=== PATIENT | male | born 1980 | race Caucasian/White ===

== ENCOUNTER 2019-12-02 19:12 | Inpatient (IN) | payer MEDICAID, OTHER ==
[~2019-12-02] VITALS: Ht 177.8 cm; Wt 160.0 kg
[2019-12-02] MEDS ORDERED: HYDROmorphone HCL 2 MG/ML VL IV ONE (20:45)
[2019-12-02] MEDS ORDERED: ONDANSETRON HCL 4 MG/2 ML VIAL IV ONE (20:45)
[2019-12-02] MEDS ORDERED: ENALAPRILAT 1.25 MG/ML-1ML VIAL IV ONE (20:45)
[2019-12-02] MEDS ORDERED: hydrALAZINE HCL 20 MG/ML VL IV ONE (20:45)
[2019-12-02 21:23] LABS: Basophils # (auto) 0.1 10 ^3/uL (0-0.2); Basophils % (auto) 0.5 % (0.0-2.0); Eosinophils # (auto) 0.1 10 ^3/uL (0-0.8); Eosinophils % (auto) 1.2 % (0.0-7.0); Hematocrit 50.2 % (41.0-53.0); Lymphocytes % (auto) 15.6 % (10.0-50.0); Mean Corpuscular Hemoglobin 29.7 pg (28.0-32.0); Mean Corpuscular Hgb Conc. 31.9 g/dL (32.0-36.0); Mean Corpuscular Volume 92.9 fL (80.0-100.0); Monocytes % (auto) 7.8 % (0.0-12.0); Neutrophils # (auto) 9.5 10 ^3/uL (1.6-8.6); Neutrophils % (auto) 74.9 % (37.0-80.0); Nucleated Red Blood Cells % 0.2 %; Platelet Count (auto) 229 10^3/uL (140-450); Red Blood Cells 5.41 10^6/uL (4.5-5.90); Red Cell Distribution Width 15.8 % (11.8-14.3); White Blood Cell 12.6 10^3/uL (4.4-10.8)
[2019-12-02 21:38] LABS: INR 1.05 (0.9-1.15); Partial Thromboplastin Time 26.6 sec (23.0-31.2)
[2019-12-02 21:45] VITALS: BP 160/100
[2019-12-02 21:46] LABS: Albumin 3.5 g/dL (3.4-5.0); Calcium 8.4 mg/dL (8.5-10.1); Magnesium 2.4 mg/dL (1.6-2.6); Potassium 3.8 mmol/L (3.5-5.1)
[2019-12-02 21:52] LABS: BUN/Creatinine Ratio 14.1; Bilirubin, Total 0.4 mg/dL (0.2-1.0); Total Protein 7.3 g/dL (6.4-8.2)
[2019-12-02] MEDS ORDERED: PIPERACILLIN-TAZO 4.5GM 100 ML IV ONE (22:00)
[2019-12-02] MEDS ORDERED: ENOXAPARIN SOD 100 MG/1 ML SYRINGE SC ONE (22:15)
[2019-12-02] MEDS ORDERED: MORPHINE SULF INJ 2 MG/ML SYRINGE 1ML IV PRN (23:15)
[2019-12-02] MEDS ORDERED: NITROGLYCERIN 0.4 MG SL TAB SL PRN ×2 (23:15)
[2019-12-02] MEDS ORDERED: ZOLPIDEM TARTRATE 5 MG TAB PO PRN (23:15)
[2019-12-02] MEDS ORDERED: ONDANSETRON HCL 4 MG/2 ML VIAL IV PRN (23:15)
[2019-12-02] MEDS ORDERED: LORazepam 0.5 MG TAB PO PRN (23:15)
[2019-12-02] MEDS ORDERED: MORPHINE SULFATE 4 MG/ML SYR/VIAL IV PRN (23:15)
[2019-12-02] MEDS ORDERED: DEXTROSE (50%) 50ML SYRG IV PRN (23:15)
[2019-12-03] VITALS (65 sets, daily range): BP systolic 83–155; BP diastolic 44–91
[2019-12-03] MEDS: FUROSEMIDE 40 MG/4 ML VIAL IV SCH ×3 (00:04→22:34)
[2019-12-03] MEDS: ACCU-CHEK COMFORT CURVE STRIP VI SCH ×6 (00:23→20:05)
[2019-12-03] MEDS: InsuLIN REG 1unit/0.01ml Soln (100units/ml) SC SCH ×6 (00:23→20:00)
[2019-12-03 04:07] LABS: Basophils # (auto) 0.1 10 ^3/uL (0-0.2); Basophils % (auto) 0.7 % (0.0-2.0); Eosinophils # (auto) 0 10 ^3/uL (0-0.8); Eosinophils % (auto) 0.4 % (0.0-7.0); Hematocrit 51.1 % (41.0-53.0); Hemoglobin 16.2 g/dL (13.5-17.5); Lymphocytes # (auto) 1.2 10 ^3/uL (0.4-5.4); Lymphocytes % (auto) 9.5 % (10.0-50.0); Mean Corpuscular Hemoglobin 29.4 pg (28.0-32.0); Mean Corpuscular Hgb Conc. 31.8 g/dL (32.0-36.0); Mean Corpuscular Volume 92.5 fL (80.0-100.0); Monocytes # (auto) 0.8 10 ^3/uL (0-1.3); Monocytes % (auto) 6.5 % (0.0-12.0); Neutrophils # (auto) 10.6 10 ^3/uL (1.6-8.6); Neutrophils % (auto) 82.9 % (37.0-80.0); Nucleated Red Blood Cells % 0.1 %; Platelet Count (auto) 312 10^3/uL (140-450); Red Blood Cells 5.52 10^6/uL (4.5-5.90); Red Cell Distribution Width 16.4 % (11.8-14.3); White Blood Cell 12.8 10^3/uL (4.4-10.8)
[2019-12-03] MEDS: AZITHROMYCIN 500MG/ 250ML 250 ML IV SCH ×2 (06:42→11:00)
[2019-12-03 07:56] LABS: Potassium 3.8 mmol/L (3.5-5.1)
[2019-12-03 08:11] LABS: BUN/Creatinine Ratio 13.6; Magnesium 2.3 mg/dL (1.6-2.6)
[2019-12-03] MEDS: DOCUSATE SOD 100 MG CAP PO SCH (10:00)
[2019-12-03] MEDS: METOPROLOL TARTRATE 50 MG TAB PO SCH ×2 (10:00→22:00)
[2019-12-03] MEDS: CLOPIDOGREL BISULFATE 75 MG TAB PO SCH (10:00)
[2019-12-03] MEDS: ASPirin 81 mg TAB PO SCH (10:00)
[2019-12-03] MEDS: ENOXAPARIN SOD 100 MG/1 ML SYRINGE SC SCH ×2 (11:00→22:35)
[2019-12-03] MEDS: DexAMETHasone SOD PHOS 10MG/1ML VIAL INJ IV SCH (11:00)
[2019-12-03] MEDS: cefTRIAXone 1GM/50ML D5W 50 ML IV SCH (11:00)
[2019-12-03] MEDS ORDERED: ETOMIDATE (2MG/ML) 20ML VIAL IV ONE (11:38)
[2019-12-03] MEDS ORDERED: SUCCINYLCHOLINE CHLORIDE 20 MG/ML 10ML VIAL IV ONE (11:39)
[2019-12-03] MEDS ORDERED: ROCURONIUM 10MG/ML 10ML VIAL IV ONE (11:39)
[2019-12-03] MEDS: PROPOFOL 100 ML IV SCH ×3 (12:00→22:00)
[2019-12-03] MEDS ORDERED: MIDAZOLAM DRIP 50 mg/50mL 50 ML IV ONE (12:07)
[2019-12-03] MEDS ORDERED: PROPOFOL 100 ML IV ONE ×2 (12:23→14:35)
[2019-12-03] MEDS: MIDAZOLAM DRIP 50 mg/50mL 50 ML IV SCH ×2 (12:30→22:00)
[2019-12-03] MEDS ORDERED: NOREPINEPHRINE 8 MG/250ML KIT 250 ML IV SCH (13:05)
[2019-12-03] MEDS: NOREPINEPHRINE 8 MG/250ML KIT 250 ML IV SCH (13:15)
[2019-12-03] MEDS: ATORVASTATIN 20 MG TAB PO SCH (17:16)
[2019-12-04] VITALS (100 sets, daily range): BP systolic 100–142; BP diastolic 58–97
[2019-12-04] MEDS: PROPOFOL 100 ML IV SCH ×4 (01:53→10:00)
[2019-12-04 03:59] LABS: Basophils # (auto) 0 10 ^3/uL (0-0.2); Basophils % (auto) 0.1 % (0.0-2.0); Eosinophils # (auto) 0 10 ^3/uL (0-0.8); Eosinophils % (auto) 0.1 % (0.0-7.0); Hematocrit 47.5 % (41.0-53.0); Hemoglobin 15.5 g/dL (13.5-17.5); Lymphocytes # (auto) 1.6 10 ^3/uL (0.4-5.4); Lymphocytes % (auto) 11.7 % (10.0-50.0); Mean Corpuscular Hemoglobin 30.1 pg (28.0-32.0); Mean Corpuscular Hgb Conc. 32.6 g/dL (32.0-36.0); Mean Corpuscular Volume 92.4 fL (80.0-100.0); Monocytes % (auto) 7.3 % (0.0-12.0); Neutrophils # (auto) 11.2 10 ^3/uL (1.6-8.6); Neutrophils % (auto) 80.8 % (37.0-80.0); Nucleated Red Blood Cells % 0.2 %; Platelet Count (auto) 225 10^3/uL (140-450); Red Blood Cells 5.14 10^6/uL (4.5-5.90); Red Cell Distribution Width 15.6 % (11.8-14.3); White Blood Cell 13.9 10^3/uL (4.4-10.8)
[2019-12-04] MEDS: InsuLIN REG 1unit/0.01ml Soln (100units/ml) SC SCH ×6 (04:00→20:00)
[2019-12-04] MEDS: ACCU-CHEK COMFORT CURVE STRIP VI SCH ×6 (04:11→20:00)
[2019-12-04 04:12] LABS: Calcium 8.3 mg/dL (8.5-10.1); Potassium 3.9 mmol/L (3.5-5.1)
[2019-12-04 04:15] LABS: BUN/Creatinine Ratio 15.4
[2019-12-04] MEDS: MIDAZOLAM DRIP 50 mg/50mL 50 ML IV SCH (07:03)
[2019-12-04] MEDS: METOPROLOL TARTRATE 50 MG TAB PO SCH (10:00)
[2019-12-04] MEDS: CLOPIDOGREL BISULFATE 75 MG TAB PO SCH (10:00)
[2019-12-04] MEDS: ASPirin 81 mg TAB PO SCH (10:00)
[2019-12-04] MEDS: DOCUSATE SOD 100 MG CAP PO SCH (10:00)
[2019-12-04] MEDS: DexAMETHasone SOD PHOS 10MG/1ML VIAL INJ IV SCH (10:42)
[2019-12-04] MEDS: FUROSEMIDE 40 MG/4 ML VIAL IV SCH ×2 (10:42→22:18)
[2019-12-04] MEDS: cefTRIAXone 1GM/50ML D5W 50 ML IV SCH (10:42)
[2019-12-04] MEDS: AZITHROMYCIN 500MG/ 250ML 250 ML IV SCH (10:43)
[2019-12-04] MEDS: ENOXAPARIN SOD 100 MG/1 ML SYRINGE SC SCH ×2 (10:44→22:19)
[2019-12-04] MEDS: NOREPINEPHRINE 8 MG/250ML KIT 250 ML IV SCH (13:15)
[2019-12-04] MEDS: CARVEDILOL 3.125 MG TAB PO SCH (18:30)
[2019-12-04] MEDS: ATORVASTATIN 20 MG TAB PO SCH (18:31)
[2019-12-04] MEDS: SACUBITRIL-VALSARTAN 24mg/26mg TAB PO SCH (22:18)
[2019-12-05] VITALS (94 sets, daily range): BP systolic 94–151; BP diastolic 48–112
[2019-12-05] MEDS: PROPOFOL 100 ML IV SCH ×6 (00:52→21:48)
[2019-12-05 03:21] LABS: Basophils # (auto) 0.1 10 ^3/uL (0-0.2); Basophils % (auto) 0.4 % (0.0-2.0); Eosinophils # (auto) 0 10 ^3/uL (0-0.8); Eosinophils % (auto) 0.1 % (0.0-7.0); Hematocrit 49.8 % (41.0-53.0); Lymphocytes # (auto) 1.5 10 ^3/uL (0.4-5.4); Mean Corpuscular Hemoglobin 29.6 pg (28.0-32.0); Mean Corpuscular Hgb Conc. 32.2 g/dL (32.0-36.0); Mean Corpuscular Volume 92.2 fL (80.0-100.0); Monocytes # (auto) 1.2 10 ^3/uL (0-1.3); Monocytes % (auto) 8.6 % (0.0-12.0); Neutrophils # (auto) 11.2 10 ^3/uL (1.6-8.6); Neutrophils % (auto) 79.9 % (37.0-80.0); Nucleated Red Blood Cells % 0.4 %; Platelet Count (auto) 215 10^3/uL (140-450); Red Cell Distribution Width 15.3 % (11.8-14.3)
[2019-12-05] MEDS: InsuLIN REG 1unit/0.01ml Soln (100units/ml) SC SCH ×8 (03:37→23:21)
[2019-12-05] MEDS: ACCU-CHEK COMFORT CURVE STRIP VI SCH ×7 (03:37→23:22)
[2019-12-05 03:38] LABS: Calcium 8.6 mg/dL (8.5-10.1); Magnesium 2.3 mg/dL (1.6-2.6); Potassium 3.8 mmol/L (3.5-5.1)
[2019-12-05 03:42] LABS: BUN/Creatinine Ratio 20.6; Bilirubin, Direct 0.4 mg/dL (0-0.2); Bilirubin, Total 0.8 mg/dL (0.2-1.0); Total Protein 6.5 g/dL (6.4-8.2)
[2019-12-05 03:51] LABS: INR 1.08 (0.9-1.15); Partial Thromboplastin Time 28.2 sec (23.0-31.2)
[2019-12-05] MEDS: MIDAZOLAM DRIP 50 mg/50mL 50 ML IV SCH ×3 (09:29→23:35)
[2019-12-05] MEDS: CLOPIDOGREL BISULFATE 75 MG TAB PO SCH ×2 (10:00→10:05)
[2019-12-05] MEDS: DOCUSATE SOD 100 MG CAP PO SCH (10:00)
[2019-12-05] MEDS: DexAMETHasone SOD PHOS 10MG/1ML VIAL INJ IV SCH (10:03)
[2019-12-05] MEDS: CARVEDILOL 3.125 MG TAB PO SCH ×2 (10:03→17:34)
[2019-12-05] MEDS: SACUBITRIL-VALSARTAN 24mg/26mg TAB PO SCH ×2 (10:04→21:27)
[2019-12-05] MEDS: cefTRIAXone 1GM/50ML D5W 50 ML IV SCH (10:04)
[2019-12-05] MEDS: FUROSEMIDE 40 MG/4 ML VIAL IV SCH ×2 (10:04→21:26)
[2019-12-05] MEDS: ASPirin 81 mg TAB PO SCH (10:04)
[2019-12-05] MEDS: ENOXAPARIN SOD 100 MG/1 ML SYRINGE SC SCH ×2 (10:05→21:27)
[2019-12-05] MEDS: AZITHROMYCIN 500MG/ 250ML 250 ML IV SCH (11:33)
[2019-12-05] MEDS: NOREPINEPHRINE 8 MG/250ML KIT 250 ML IV SCH (13:15)
[2019-12-05] MEDS: ATORVASTATIN 20 MG TAB PO SCH (17:34)
[2019-12-06] VITALS (70 sets, daily range): BP systolic 100–154; BP diastolic 63–97
[2019-12-06] MEDS: PROPOFOL 100 ML IV SCH ×10 (00:32→23:41)
[2019-12-06] MEDS: InsuLIN REG 1unit/0.01ml Soln (100units/ml) SC SCH ×6 (03:38→23:43)
[2019-12-06] MEDS: ACCU-CHEK COMFORT CURVE STRIP VI SCH ×6 (03:39→23:43)
[2019-12-06 04:06] LABS: Basophils # (auto) 0 10 ^3/uL (0-0.2); Basophils % (auto) 0.3 % (0.0-2.0); Eosinophils # (auto) 0 10 ^3/uL (0-0.8); Hematocrit 48.4 % (41.0-53.0); Hemoglobin 15.7 g/dL (13.5-17.5); Lymphocytes # (auto) 1.5 10 ^3/uL (0.4-5.4); Lymphocytes % (auto) 13.3 % (10.0-50.0); Mean Corpuscular Hemoglobin 29.7 pg (28.0-32.0); Mean Corpuscular Hgb Conc. 32.4 g/dL (32.0-36.0); Mean Corpuscular Volume 91.6 fL (80.0-100.0); Monocytes # (auto) 0.9 10 ^3/uL (0-1.3); Monocytes % (auto) 8.1 % (0.0-12.0); Neutrophils # (auto) 8.6 10 ^3/uL (1.6-8.6); Neutrophils % (auto) 78.3 % (37.0-80.0); Platelet Count (auto) 194 10^3/uL (140-450); Red Blood Cells 5.29 10^6/uL (4.5-5.90); Red Cell Distribution Width 15.3 % (11.8-14.3)
[2019-12-06 04:27] LABS: Potassium 3.5 mmol/L (3.5-5.1)
[2019-12-06] MEDS: MIDAZOLAM DRIP 50 mg/50mL 50 ML IV SCH ×2 (04:27→20:15)
[2019-12-06 04:32] LABS: Albumin 2.7 g/dL (3.4-5.0); BUN/Creatinine Ratio 25.5; Bilirubin, Direct 0.4 mg/dL (0-0.2); Calcium 8.9 mg/dL (8.5-10.1); Magnesium 2.3 mg/dL (1.6-2.6)
[2019-12-06 04:34] LABS: INR 1.08 (0.9-1.15); Partial Thromboplastin Time 29.8 sec (23.0-31.2)
[2019-12-06 04:39] LABS: Bilirubin, Total 0.8 mg/dL (0.2-1.0); Total Protein 6.2 g/dL (6.4-8.2)
[2019-12-06] MEDS: IPRATROPIUM BROM 0.5 MG/2.5ML INH SOL NEB PRN ×2 (06:14→10:15)
[2019-12-06] MEDS: ALBUTEROL SULF 2.5 MG/0.5ML(0.5%) NEB SOLN NEB PRN ×2 (06:14→10:15)
[2019-12-06] MEDS: CARVEDILOL 3.125 MG TAB PO SCH (08:38)
[2019-12-06] MEDS: CLOPIDOGREL BISULFATE 75 MG TAB PO SCH (10:50)
[2019-12-06] MEDS: ENOXAPARIN SOD 100 MG/1 ML SYRINGE SC SCH ×2 (10:50→22:00)
[2019-12-06] MEDS: CARVEDILOL 12.5 MG TAB PO SCH ×2 (10:52→22:00)
[2019-12-06] MEDS: DOCUSATE SOD 100 MG CAP PO SCH (10:52)
[2019-12-06] MEDS: ASPirin 81 mg TAB PO SCH (10:52)
[2019-12-06] MEDS: AZITHROMYCIN 500MG/ 250ML 250 ML IV SCH (10:53)
[2019-12-06] MEDS: cefTRIAXone 1GM/50ML D5W 50 ML IV SCH (10:53)
[2019-12-06] MEDS: FUROSEMIDE 40 MG/4 ML VIAL IV SCH ×2 (10:54→22:00)
[2019-12-06] MEDS: SACUBITRIL-VALSARTAN 24mg/26mg TAB PO SCH ×2 (10:56→22:00)
[2019-12-06] MEDS: NOREPINEPHRINE 8 MG/250ML KIT 250 ML IV SCH (13:15)
[2019-12-06] MEDS: ATORVASTATIN 20 MG TAB PO SCH (17:49)
[2019-12-07] VITALS (96 sets, daily range): BP systolic 85–134; BP diastolic 40–91
[2019-12-07] MEDS: PROPOFOL 100 ML IV SCH ×5 (01:47→22:03)
[2019-12-07] MEDS: MIDAZOLAM DRIP 50 mg/50mL 50 ML IV SCH ×3 (01:48→22:56)
[2019-12-07 03:57] LABS: Basophils # (auto) 0.1 10 ^3/uL (0-0.2); Basophils % (auto) 0.8 % (0.0-2.0); Eosinophils # (auto) 0.1 10 ^3/uL (0-0.8); Eosinophils % (auto) 0.5 % (0.0-7.0); Hematocrit 47.6 % (41.0-53.0); Hemoglobin 15.4 g/dL (13.5-17.5); Lymphocytes # (auto) 2.2 10 ^3/uL (0.4-5.4); Lymphocytes % (auto) 20.2 % (10.0-50.0); Mean Corpuscular Hemoglobin 29.4 pg (28.0-32.0); Mean Corpuscular Hgb Conc. 32.3 g/dL (32.0-36.0); Mean Corpuscular Volume 91.1 fL (80.0-100.0); Neutrophils # (auto) 7.4 10 ^3/uL (1.6-8.6); Neutrophils % (auto) 69.5 % (37.0-80.0); Platelet Count (auto) 188 10^3/uL (140-450); Red Blood Cells 5.23 10^6/uL (4.5-5.90); Red Cell Distribution Width 15.6 % (11.8-14.3); White Blood Cell 10.7 10^3/uL (4.4-10.8)
[2019-12-07] MEDS: ACCU-CHEK COMFORT CURVE STRIP VI SCH ×6 (04:00→23:34)
[2019-12-07] MEDS: InsuLIN REG 1unit/0.01ml Soln (100units/ml) SC SCH ×6 (04:00→23:34)
[2019-12-07 04:14] LABS: Calcium 8.4 mg/dL (8.5-10.1)
[2019-12-07 04:20] LABS: Potassium 2.9 mmol/L (3.5-5.1)
[2019-12-07 04:58] LABS: BUN/Creatinine Ratio 29.1
[2019-12-07] MEDS: SACUBITRIL-VALSARTAN 24mg/26mg TAB PO SCH ×2 (09:52→20:01)
[2019-12-07] MEDS: ENOXAPARIN SOD 100 MG/1 ML SYRINGE SC SCH ×2 (10:11→20:02)
[2019-12-07] MEDS: DOCUSATE SOD 100 MG CAP PO SCH (10:12)
[2019-12-07] MEDS: CLOPIDOGREL BISULFATE 75 MG TAB PO SCH (10:12)
[2019-12-07] MEDS: FUROSEMIDE 40 MG/4 ML VIAL IV SCH ×2 (10:12→20:01)
[2019-12-07] MEDS: ASPirin 81 mg TAB PO SCH (10:12)
[2019-12-07] MEDS: cefTRIAXone 1GM/50ML D5W 50 ML IV SCH (10:13)
[2019-12-07] MEDS: AZITHROMYCIN 500MG/ 250ML 250 ML IV SCH (10:13)
[2019-12-07] MEDS: CARVEDILOL 12.5 MG TAB PO SCH (10:13)
[2019-12-07] MEDS ORDERED: POTASSIUM EFFERVESENT TAB 25 MEQ GT ONE (13:00)
[2019-12-07] MEDS: NOREPINEPHRINE 8 MG/250ML KIT 250 ML IV SCH (13:15)
[2019-12-07] MEDS: fentaNYL Drip 2500mCg/250mlNS 250 ML IV SCH (13:48)
[2019-12-07] MEDS: POTASSIUM CHL 20MEQ/100ML 100 ML IV SCH ×2 (13:51→16:50)
[2019-12-07] MEDS: ATORVASTATIN 20 MG TAB PO SCH (18:25)
[2019-12-07 19:42] LABS: BUN/Creatinine Ratio 30.6; Calcium 8.6 mg/dL (8.5-10.1); Potassium 3.5 mmol/L (3.5-5.1)
[2019-12-07] MEDS: CARVEDILOL 3.125 MG TAB PO SCH (20:00)
[2019-12-07] MEDS ORDERED: POTASSIUM EFFERVESENT TAB 25 MEQ GT SCH (22:00)
[2019-12-08] VITALS (100 sets, daily range): BP systolic 86–123; BP diastolic 37–75
[2019-12-08] MEDS: fentaNYL Drip 2500mCg/250mlNS 250 ML IV SCH ×3 (00:50→23:45)
[2019-12-08] MEDS: MIDAZOLAM DRIP 50 mg/50mL 50 ML IV SCH ×5 (03:57→21:29)
[2019-12-08] MEDS: PROPOFOL 100 ML IV SCH ×3 (03:58→14:20)
[2019-12-08] MEDS: ACCU-CHEK COMFORT CURVE STRIP VI SCH ×5 (04:00→23:09)
[2019-12-08] MEDS: InsuLIN REG 1unit/0.01ml Soln (100units/ml) SC SCH ×5 (04:00→23:09)
[2019-12-08] MEDS: SACUBITRIL-VALSARTAN 24mg/26mg TAB PO SCH ×2 (09:30→21:28)
[2019-12-08] MEDS: cefTRIAXone 1GM/50ML D5W 50 ML IV SCH (09:31)
[2019-12-08] MEDS: ASPirin 81 mg TAB PO SCH (09:31)
[2019-12-08] MEDS: AZITHROMYCIN 500MG/ 250ML 250 ML IV SCH (09:31)
[2019-12-08] MEDS: CLOPIDOGREL BISULFATE 75 MG TAB PO SCH (09:31)
[2019-12-08] MEDS: ENOXAPARIN SOD 100 MG/1 ML SYRINGE SC SCH ×2 (09:31→21:29)
[2019-12-08] MEDS: CARVEDILOL 3.125 MG TAB PO SCH ×2 (09:31→21:27)
[2019-12-08] MEDS: FUROSEMIDE 40 MG/4 ML VIAL IV SCH ×2 (09:32→21:28)
[2019-12-08] MEDS: DOCUSATE SOD 100 MG CAP PO SCH (09:33)
[2019-12-08] MEDS ORDERED: Osmolite 1.2 Cal One Liter GT SCH (11:00)
[2019-12-08] MEDS: NOREPINEPHRINE 8 MG/250ML KIT 250 ML IV SCH (13:15)
[2019-12-08] MEDS: ATORVASTATIN 20 MG TAB PO SCH (18:11)
[2019-12-08] MEDS: ACETAMINOPHEN 325 MG TAB PO PRN (21:15)
[2019-12-09] VITALS (102 sets, daily range): BP systolic 94–131; BP diastolic 48–89
[2019-12-09] MEDS: MIDAZOLAM DRIP 50 mg/50mL 50 ML IV SCH ×3 (01:00→22:00)
[2019-12-09] MEDS: InsuLIN REG 1unit/0.01ml Soln (100units/ml) SC SCH ×4 (04:56→23:06)
[2019-12-09] MEDS: ACCU-CHEK COMFORT CURVE STRIP VI SCH ×4 (04:56→23:06)
[2019-12-09] MEDS: ACETAMINOPHEN 325 MG TAB PO PRN ×2 (05:02→20:35)
[2019-12-09] MEDS: ALBUTEROL SULF 2.5 MG/0.5ML(0.5%) NEB SOLN NEB PRN (05:57)
[2019-12-09] MEDS: IPRATROPIUM BROM 0.5 MG/2.5ML INH SOL NEB PRN (05:57)
[2019-12-09 08:13] LABS: Basophils # (auto) 0.1 10 ^3/uL (0-0.2); Basophils % (auto) 0.7 % (0.0-2.0); Eosinophils # (auto) 0.1 10 ^3/uL (0-0.8); Eosinophils % (auto) 1.3 % (0.0-7.0); Hematocrit 44.5 % (41.0-53.0); Hemoglobin 14.5 g/dL (13.5-17.5); Lymphocytes # (auto) 2.1 10 ^3/uL (0.4-5.4); Lymphocytes % (auto) 19.9 % (10.0-50.0); Mean Corpuscular Hgb Conc. 32.6 g/dL (32.0-36.0); Monocytes # (auto) 1.2 10 ^3/uL (0-1.3); Neutrophils # (auto) 7.1 10 ^3/uL (1.6-8.6); Neutrophils % (auto) 67.1 % (37.0-80.0); Platelet Count (auto) 170 10^3/uL (140-450); Red Blood Cells 4.83 10^6/uL (4.5-5.90); Red Cell Distribution Width 15.8 % (11.8-14.3); White Blood Cell 10.6 10^3/uL (4.4-10.8)
[2019-12-09 08:30] LABS: Albumin 2.6 g/dL (3.4-5.0); Calcium 8.8 mg/dL (8.5-10.1); Potassium 3.5 mmol/L (3.5-5.1)
[2019-12-09 08:33] LABS: BUN/Creatinine Ratio 34.9; Bilirubin, Total 0.9 mg/dL (0.2-1.0); Total Protein 6.3 g/dL (6.4-8.2)
[2019-12-09] MEDS: ASPirin 81 mg TAB PO SCH (09:44)
[2019-12-09] MEDS: cefTRIAXone 1GM/50ML D5W 50 ML IV SCH (09:44)
[2019-12-09] MEDS: FUROSEMIDE 40 MG/4 ML VIAL IV SCH ×2 (09:44→20:34)
[2019-12-09] MEDS: AZITHROMYCIN 500MG/ 250ML 250 ML IV SCH (09:44)
[2019-12-09] MEDS: SACUBITRIL-VALSARTAN 24mg/26mg TAB PO SCH ×2 (09:45→20:35)
[2019-12-09] MEDS: ENOXAPARIN SOD 100 MG/1 ML SYRINGE SC SCH ×2 (09:45→20:35)
[2019-12-09] MEDS: CLOPIDOGREL BISULFATE 75 MG TAB PO SCH (09:45)
[2019-12-09] MEDS: CARVEDILOL 3.125 MG TAB PO SCH ×2 (09:45→20:34)
[2019-12-09] MEDS ORDERED: DOCUSATE ORAL LIQUID 100 MG/10 ML UD GT SCH (10:00)
[2019-12-09] MEDS: NOREPINEPHRINE 8 MG/250ML KIT 250 ML IV SCH (13:15)
[2019-12-09] MEDS: PROPOFOL 100 ML IV SCH ×3 (15:20→23:15)
[2019-12-09] MEDS: ATORVASTATIN 20 MG TAB PO SCH (18:20)
[2019-12-09] MEDS: DOCUSATE ORAL LIQUID 100 MG/10 ML UD GT SCH (20:34)
[2019-12-10] VITALS (105 sets, daily range): BP systolic 98–128; BP diastolic 58–95
[2019-12-10] MEDS: fentaNYL Drip 2500mCg/250mlNS 250 ML IV SCH (00:30)
[2019-12-10] MEDS: MIDAZOLAM DRIP 50 mg/50mL 50 ML IV SCH ×3 (03:15→21:00)
[2019-12-10] MEDS: PROPOFOL 100 ML IV SCH ×4 (03:45→21:00)
[2019-12-10] MEDS: InsuLIN REG 1unit/0.01ml Soln (100units/ml) SC SCH ×4 (05:00→23:30)
[2019-12-10] MEDS: ACCU-CHEK COMFORT CURVE STRIP VI SCH ×4 (05:00→23:30)
[2019-12-10] MEDS: FUROSEMIDE 40 MG/4 ML VIAL IV SCH ×2 (09:55→20:11)
[2019-12-10] MEDS: ENOXAPARIN SOD 100 MG/1 ML SYRINGE SC SCH ×2 (09:55→20:12)
[2019-12-10] MEDS: cefTRIAXone 1GM/50ML D5W 50 ML IV SCH (09:55)
[2019-12-10] MEDS: CARVEDILOL 3.125 MG TAB PO SCH ×2 (09:55→20:11)
[2019-12-10] MEDS: SACUBITRIL-VALSARTAN 24mg/26mg TAB PO SCH ×2 (10:00→20:11)
[2019-12-10] MEDS: DOCUSATE ORAL LIQUID 100 MG/10 ML UD GT SCH ×2 (10:00→20:11)
[2019-12-10] MEDS: ASPirin 81 mg TAB PO SCH (10:00)
[2019-12-10] MEDS: CLOPIDOGREL BISULFATE 75 MG TAB PO SCH (10:00)
[2019-12-10] MEDS: AZITHROMYCIN 500MG/ 250ML 250 ML IV SCH (10:04)
[2019-12-10] MEDS: NOREPINEPHRINE 8 MG/250ML KIT 250 ML IV SCH (13:15)
[2019-12-10 14:51] LABS: Potassium 3.5 mmol/L (3.5-5.1)
[2019-12-10 14:54] LABS: Magnesium 2.2 mg/dL (1.6-2.6)
[2019-12-10] MEDS ORDERED: METOCLOPRAMIDE HCL 5MG/ml INJ 2ml VIAL IV ONE (15:00)
[2019-12-10] MEDS: ATORVASTATIN 20 MG TAB PO SCH (18:25)
[2019-12-10] MEDS: METOCLOPRAMIDE HCL 5MG/ml INJ 2ml VIAL IV SCH (20:11)
[2019-12-11] VITALS (102 sets, daily range): BP systolic 96–174; BP diastolic 49–105
[2019-12-11] MEDS: fentaNYL Drip 2500mCg/250mlNS 250 ML IV SCH (00:40)
[2019-12-11 03:51] LABS: Basophils # (auto) 0 10 ^3/uL (0-0.2); Basophils % (auto) 0.5 % (0.0-2.0); Eosinophils # (auto) 0.4 10 ^3/uL (0-0.8); Eosinophils % (auto) 4.6 % (0.0-7.0); Hematocrit 45.7 % (41.0-53.0); Hemoglobin 15.1 g/dL (13.5-17.5); Lymphocytes # (auto) 1.7 10 ^3/uL (0.4-5.4); Lymphocytes % (auto) 17.8 % (10.0-50.0); Mean Corpuscular Hemoglobin 30.2 pg (28.0-32.0); Mean Corpuscular Hgb Conc. 33.1 g/dL (32.0-36.0); Mean Corpuscular Volume 91.2 fL (80.0-100.0); Monocytes # (auto) 1.2 10 ^3/uL (0-1.3); Monocytes % (auto) 12.4 % (0.0-12.0); Neutrophils % (auto) 64.7 % (37.0-80.0); Nucleated Red Blood Cells % 0.1 %; Platelet Count (auto) 168 10^3/uL (140-450); Red Blood Cells 5.01 10^6/uL (4.5-5.90); Red Cell Distribution Width 15.1 % (11.8-14.3); White Blood Cell 9.3 10^3/uL (4.4-10.8)
[2019-12-11 04:12] LABS: BUN/Creatinine Ratio 35.3; Calcium 9.1 mg/dL (8.5-10.1); Magnesium 2.1 mg/dL (1.6-2.6); Potassium 3.8 mmol/L (3.5-5.1)
[2019-12-11] MEDS: PROPOFOL 100 ML IV SCH ×5 (05:00→22:50)
[2019-12-11] MEDS: ACETAMINOPHEN 325 MG TAB PO PRN ×2 (05:15→20:02)
[2019-12-11] MEDS: METOCLOPRAMIDE HCL 5MG/ml INJ 2ml VIAL IV SCH ×3 (05:15→20:01)
[2019-12-11] MEDS: ACCU-CHEK COMFORT CURVE STRIP VI SCH ×3 (05:15→18:00)
[2019-12-11] MEDS: InsuLIN REG 1unit/0.01ml Soln (100units/ml) SC SCH ×3 (05:19→18:00)
[2019-12-11] MEDS: MIDAZOLAM DRIP 50 mg/50mL 50 ML IV SCH ×3 (07:30→20:00)
[2019-12-11] MEDS: DOCUSATE ORAL LIQUID 100 MG/10 ML UD GT SCH ×2 (09:55→20:00)
[2019-12-11] MEDS: FUROSEMIDE 40 MG/4 ML VIAL IV SCH ×2 (09:55→20:01)
[2019-12-11] MEDS: cefTRIAXone 1GM/50ML D5W 50 ML IV SCH (09:56)
[2019-12-11] MEDS: AZITHROMYCIN 500MG/ 250ML 250 ML IV SCH (09:56)
[2019-12-11] MEDS: ASPirin 81 mg TAB PO SCH (09:56)
[2019-12-11] MEDS: CLOPIDOGREL BISULFATE 75 MG TAB PO SCH (09:57)
[2019-12-11] MEDS: CARVEDILOL 12.5 MG TAB PO SCH ×2 (09:57→20:01)
[2019-12-11] MEDS: ENOXAPARIN SOD 100 MG/1 ML SYRINGE SC SCH ×2 (09:57→20:02)
[2019-12-11] MEDS: SACUBITRIL-VALSARTAN 24mg/26mg TAB PO SCH ×2 (09:57→20:01)
[2019-12-11] MEDS: ATORVASTATIN 20 MG TAB PO SCH (18:00)
[2019-12-12] VITALS (104 sets, daily range): BP systolic 106–153; BP diastolic 3–102
[2019-12-12] MEDS: InsuLIN REG 1unit/0.01ml Soln (100units/ml) SC SCH ×5 (04:56→23:44)
[2019-12-12] MEDS: ACCU-CHEK COMFORT CURVE STRIP VI SCH ×5 (04:56→23:45)
[2019-12-12] MEDS: METOCLOPRAMIDE HCL 5MG/ml INJ 2ml VIAL IV SCH ×3 (05:04→19:56)
[2019-12-12 05:07] LABS: Basophils # (auto) 0.1 10 ^3/uL (0-0.2); Basophils % (auto) 0.6 % (0.0-2.0); Eosinophils # (auto) 0.2 10 ^3/uL (0-0.8); Eosinophils % (auto) 1.9 % (0.0-7.0); Hematocrit 46.5 % (41.0-53.0); Lymphocytes # (auto) 1.3 10 ^3/uL (0.4-5.4); Lymphocytes % (auto) 12.4 % (10.0-50.0); Mean Corpuscular Hemoglobin 29.6 pg (28.0-32.0); Mean Corpuscular Hgb Conc. 32.3 g/dL (32.0-36.0); Mean Corpuscular Volume 91.7 fL (80.0-100.0); Monocytes # (auto) 1.3 10 ^3/uL (0-1.3); Monocytes % (auto) 12.4 % (0.0-12.0); Neutrophils # (auto) 7.4 10 ^3/uL (1.6-8.6); Neutrophils % (auto) 72.7 % (37.0-80.0); Nucleated Red Blood Cells % 0.1 %; Platelet Count (auto) 158 10^3/uL (140-450); Red Blood Cells 5.07 10^6/uL (4.5-5.90); White Blood Cell 10.2 10^3/uL (4.4-10.8)
[2019-12-12 05:25] LABS: Albumin 2.7 g/dL (3.4-5.0); Calcium 9.1 mg/dL (8.5-10.1); Potassium 3.7 mmol/L (3.5-5.1)
[2019-12-12 05:29] LABS: BUN/Creatinine Ratio 35.6; Bilirubin, Total 0.7 mg/dL (0.2-1.0); Total Protein 6.7 g/dL (6.4-8.2)
[2019-12-12 06:14] LABS: INR 1.08 (0.9-1.15); Partial Thromboplastin Time 28.6 sec (23.0-31.2)
[2019-12-12] MEDS: CARVEDILOL 12.5 MG TAB PO SCH ×3 (09:11→19:57)
[2019-12-12] MEDS: SACUBITRIL-VALSARTAN 24mg/26mg TAB PO SCH ×3 (09:11→19:57)
[2019-12-12] MEDS: DOCUSATE ORAL LIQUID 100 MG/10 ML UD GT SCH ×2 (09:11→19:56)
[2019-12-12] MEDS: ASPirin 81 mg TAB PO SCH (09:11)
[2019-12-12] MEDS: CLOPIDOGREL BISULFATE 75 MG TAB PO SCH (09:12)
[2019-12-12] MEDS: ENOXAPARIN SOD 100 MG/1 ML SYRINGE SC SCH ×2 (09:12→19:57)
[2019-12-12] MEDS: FUROSEMIDE 40 MG/4 ML VIAL IV SCH ×2 (09:15→19:56)
[2019-12-12] MEDS: cefTRIAXone 1GM/50ML D5W 50 ML IV SCH (09:16)
[2019-12-12] MEDS: AZITHROMYCIN 500MG/ 250ML 250 ML IV SCH (10:28)
[2019-12-12] MEDS: fentaNYL Drip 2500mCg/250mlNS 250 ML IV SCH (11:48)
[2019-12-12] MEDS: MIDAZOLAM DRIP 50 mg/50mL 50 ML IV SCH ×2 (12:32→21:37)
[2019-12-12] MEDS: ATORVASTATIN 20 MG TAB PO SCH (17:35)
[2019-12-12] MEDS: PROPOFOL 100 ML IV SCH ×2 (21:15→23:26)
[2019-12-13] VITALS (105 sets, daily range): BP systolic 93–146; BP diastolic 54–93
[2019-12-13] MEDS: PROPOFOL 100 ML IV SCH ×4 (01:53→23:47)
[2019-12-13] MEDS: MIDAZOLAM DRIP 50 mg/50mL 50 ML IV SCH ×3 (01:54→14:09)
[2019-12-13 04:03] LABS: Basophils # (auto) 0 10 ^3/uL (0-0.2); Basophils % (auto) 0.4 % (0.0-2.0); Eosinophils # (auto) 0.3 10 ^3/uL (0-0.8); Eosinophils % (auto) 2.2 % (0.0-7.0); Hematocrit 48.4 % (41.0-53.0); Hemoglobin 15.5 g/dL (13.5-17.5); Lymphocytes % (auto) 7.7 % (10.0-50.0); Mean Corpuscular Hemoglobin 29.5 pg (28.0-32.0); Mean Corpuscular Hgb Conc. 32.1 g/dL (32.0-36.0); Monocytes # (auto) 2.2 10 ^3/uL (0-1.3); Monocytes % (auto) 17.1 % (0.0-12.0); Neutrophils # (auto) 9.4 10 ^3/uL (1.6-8.6); Neutrophils % (auto) 72.6 % (37.0-80.0); Platelet Count (auto) 168 10^3/uL (140-450); Red Blood Cells 5.26 10^6/uL (4.5-5.90); Red Cell Distribution Width 15.4 % (11.8-14.3)
[2019-12-13 04:04] LABS: Calcium 9.5 mg/dL (8.5-10.1); Potassium 4.2 mmol/L (3.5-5.1)
[2019-12-13 04:06] LABS: BUN/Creatinine Ratio 29.5
[2019-12-13] MEDS: METOCLOPRAMIDE HCL 5MG/ml INJ 2ml VIAL IV SCH ×3 (05:09→22:48)
[2019-12-13] MEDS: ACCU-CHEK COMFORT CURVE STRIP VI SCH ×3 (05:10→17:41)
[2019-12-13] MEDS: InsuLIN REG 1unit/0.01ml Soln (100units/ml) SC SCH ×3 (05:28→17:41)
[2019-12-13] MEDS: ACETAMINOPHEN 325 MG TAB PO PRN (05:29)
[2019-12-13] MEDS: DOCUSATE ORAL LIQUID 100 MG/10 ML UD GT SCH ×2 (08:33→22:48)
[2019-12-13] MEDS: cefTRIAXone 1GM/50ML D5W 50 ML IV SCH (08:57)
[2019-12-13] MEDS: AZITHROMYCIN 500MG/ 250ML 250 ML IV SCH (08:57)
[2019-12-13] MEDS: FUROSEMIDE 40 MG/4 ML VIAL IV SCH ×2 (08:58→22:48)
[2019-12-13] MEDS: CARVEDILOL 12.5 MG TAB PO SCH (08:58)
[2019-12-13] MEDS: SACUBITRIL-VALSARTAN 24mg/26mg TAB PO SCH ×2 (08:58→22:49)
[2019-12-13 09:40] LABS: INR 1.05 (0.9-1.15)
[2019-12-13] MEDS ORDERED: LIDOCAINE 2%HCL (LOCAL ANESTH.) INJ 20ML MDV ONE (10:26)
[2019-12-13] MEDS ORDERED: SODIUM CHLORIDE LOCK 0 ML ONE (10:26)
[2019-12-13] MEDS ORDERED: EPINEPHrine HCL 1 MG/1 ML AMP ONE (10:27)
[2019-12-13] MEDS ORDERED: MIDAZOLAM HCL 5 MG/ML-1ML VIAL ONE (10:27)
[2019-12-13] MEDS ORDERED: LIDOCAINE HCL 2% TOP JELLY 5ML TOP ONE (10:27)
[2019-12-13] MEDS ORDERED: GLYCOPYRROLATE 0.2 MG/ML 1ML VIAL ONE ×2 (10:27→10:28)
[2019-12-13] MEDS ORDERED: fentaNYL CITRATE 100 MCG/2 ML VL ONE (10:28)
[2019-12-13] MEDS ORDERED: diphenhdrAMINE HCL 50 MG/1 ML VL ONE (10:29)
[2019-12-13] MEDS ORDERED: ACETYLCYSTEINE 20%(200MG/ML) SOL 4ML NEB ONE (11:00)
[2019-12-13] MEDS: fentaNYL Drip 2500mCg/250mlNS 250 ML IV SCH (12:32)
[2019-12-13] MEDS: ASPirin 81 mg TAB PO SCH (14:09)
[2019-12-13] MEDS: CLOPIDOGREL BISULFATE 75 MG TAB PO SCH (14:09)
[2019-12-13] MEDS: ENOXAPARIN SOD 100 MG/1 ML SYRINGE SC SCH ×2 (14:09→22:49)
[2019-12-13] MEDS: CARVEDILOL 3.125 MG TAB PO SCH (22:49)
[2019-12-14] VITALS (101 sets, daily range): BP systolic 88–156; BP diastolic 37–84
[2019-12-14] MEDS: ACCU-CHEK COMFORT CURVE STRIP VI SCH ×4 (00:23→18:00)
[2019-12-14] MEDS: fentaNYL Drip 2500mCg/250mlNS 250 ML IV SCH ×2 (00:52→13:34)
[2019-12-14] MEDS: PROPOFOL 100 ML IV SCH ×4 (01:45→21:11)
[2019-12-14 04:48] LABS: Basophils # (auto) 0.1 10 ^3/uL (0-0.2); Basophils % (auto) 0.6 % (0.0-2.0); Eosinophils # (auto) 0.4 10 ^3/uL (0-0.8); Eosinophils % (auto) 4.3 % (0.0-7.0); Hematocrit 43.1 % (41.0-53.0); Hemoglobin 14.1 g/dL (13.5-17.5); Lymphocytes # (auto) 1.5 10 ^3/uL (0.4-5.4); Lymphocytes % (auto) 15.5 % (10.0-50.0); Mean Corpuscular Hgb Conc. 32.6 g/dL (32.0-36.0); Monocytes # (auto) 1.6 10 ^3/uL (0-1.3); Monocytes % (auto) 16.5 % (0.0-12.0); Neutrophils # (auto) 6.2 10 ^3/uL (1.6-8.6); Neutrophils % (auto) 63.1 % (37.0-80.0); Platelet Count (auto) 148 10^3/uL (140-450); Red Blood Cells 4.69 10^6/uL (4.5-5.90); Red Cell Distribution Width 14.8 % (11.8-14.3); White Blood Cell 9.9 10^3/uL (4.4-10.8)
[2019-12-14] MEDS: MIDAZOLAM DRIP 50 mg/50mL 50 ML IV SCH ×4 (04:54→22:31)
[2019-12-14 05:07] LABS: BUN/Creatinine Ratio 38.7; Potassium 3.7 mmol/L (3.5-5.1)
[2019-12-14] MEDS: InsuLIN REG 1unit/0.01ml Soln (100units/ml) SC SCH ×4 (06:00→18:00)
[2019-12-14] MEDS: METOCLOPRAMIDE HCL 5MG/ml INJ 2ml VIAL IV SCH ×3 (06:20→21:39)
[2019-12-14] MEDS: ENOXAPARIN SOD 100 MG/1 ML SYRINGE SC SCH (09:44)
[2019-12-14] MEDS: cefTRIAXone 1GM/50ML D5W 50 ML IV SCH (09:44)
[2019-12-14] MEDS: DOCUSATE ORAL LIQUID 100 MG/10 ML UD GT SCH ×2 (09:44→21:38)
[2019-12-14] MEDS: AZITHROMYCIN 500MG/ 250ML 250 ML IV SCH (09:45)
[2019-12-14] MEDS: CLOPIDOGREL BISULFATE 75 MG TAB PO SCH (09:45)
[2019-12-14] MEDS: CARVEDILOL 3.125 MG TAB PO SCH ×2 (09:45→21:40)
[2019-12-14] MEDS: ASPirin 81 mg TAB PO SCH (09:45)
[2019-12-14] MEDS: SACUBITRIL-VALSARTAN 24mg/26mg TAB PO SCH ×2 (09:45→21:40)
[2019-12-14] MEDS: FUROSEMIDE 40 MG/4 ML VIAL IV SCH ×2 (09:48→21:39)
[2019-12-14] MEDS: ATORVASTATIN 20 MG TAB PO SCH (18:00)
[2019-12-14] MEDS: ACETAMINOPHEN 325 MG TAB PO PRN (22:50)
[2019-12-15] VITALS (108 sets, daily range): BP systolic 54–164; BP diastolic 54–99
[2019-12-15] MEDS: ACCU-CHEK COMFORT CURVE STRIP VI SCH ×5 (00:04→23:35)
[2019-12-15] MEDS: PROPOFOL 100 ML IV SCH ×5 (00:05→21:05)
[2019-12-15] MEDS: fentaNYL Drip 2500mCg/250mlNS 250 ML IV SCH (03:47)
[2019-12-15] MEDS: MIDAZOLAM DRIP 50 mg/50mL 50 ML IV SCH ×3 (03:48→23:33)
[2019-12-15] MEDS: InsuLIN REG 1unit/0.01ml Soln (100units/ml) SC SCH ×5 (06:00→23:35)
[2019-12-15] MEDS: METOCLOPRAMIDE HCL 5MG/ml INJ 2ml VIAL IV SCH ×3 (06:05→21:18)
[2019-12-15] MEDS: cefTRIAXone 1GM/50ML D5W 50 ML IV SCH (09:12)
[2019-12-15] MEDS: CLOPIDOGREL BISULFATE 75 MG TAB PO SCH (09:48)
[2019-12-15] MEDS: CARVEDILOL 3.125 MG TAB PO SCH ×2 (09:48→21:20)
[2019-12-15] MEDS: DOCUSATE ORAL LIQUID 100 MG/10 ML UD GT SCH ×2 (09:48→21:18)
[2019-12-15] MEDS: FUROSEMIDE 40 MG/4 ML VIAL IV SCH ×2 (09:48→21:19)
[2019-12-15] MEDS: AZITHROMYCIN 500MG/ 250ML 250 ML IV SCH (09:48)
[2019-12-15] MEDS: PANTOPRAZOLE 40 MG/10 ML VIAL INJ IV SCH (09:48)
[2019-12-15] MEDS: ASPirin 81 mg TAB PO SCH (09:48)
[2019-12-15] MEDS: SACUBITRIL-VALSARTAN 24mg/26mg TAB PO SCH ×2 (09:48→21:18)
[2019-12-15] MEDS: IPRATROPIUM BROM 0.5 MG/2.5ML INH SOL NEB PRN (14:33)
[2019-12-15] MEDS: ALBUTEROL SULF 2.5 MG/0.5ML(0.5%) NEB SOLN NEB PRN (14:33)
[2019-12-15] MEDS: DexMEDEtomidine 400 MCG in D5W 5% 96 ML IV SCH (15:27)
[2019-12-15] MEDS: ATORVASTATIN 20 MG TAB PO SCH (17:22)
[2019-12-15] MEDS: LACTULOSE 20Gm/30ML SOLN PO SCH (21:18)
[2019-12-16] VITALS (102 sets, daily range): BP systolic 119–181; BP diastolic 49–111
[2019-12-16] MEDS: MIDAZOLAM DRIP 50 mg/50mL 50 ML IV SCH ×4 (01:31→16:29)
[2019-12-16] MEDS: DexMEDEtomidine 400 MCG in D5W 5% 96 ML IV SCH ×2 (02:47→14:07)
[2019-12-16] MEDS: PROPOFOL 100 ML IV SCH ×7 (03:23→21:30)
[2019-12-16] MEDS: InsuLIN REG 1unit/0.01ml Soln (100units/ml) SC SCH ×3 (06:00→18:30)
[2019-12-16 06:15] LABS: Basophils # (auto) 0.1 10 ^3/uL (0-0.2); Basophils % (auto) 0.8 % (0.0-2.0); Eosinophils # (auto) 0.3 10 ^3/uL (0-0.8); Eosinophils % (auto) 3.1 % (0.0-7.0); Hematocrit 46.1 % (41.0-53.0); Hemoglobin 14.8 g/dL (13.5-17.5); Lymphocytes # (auto) 1.5 10 ^3/uL (0.4-5.4); Lymphocytes % (auto) 13.2 % (10.0-50.0); Mean Corpuscular Hemoglobin 29.5 pg (28.0-32.0); Mean Corpuscular Hgb Conc. 32.1 g/dL (32.0-36.0); Monocytes # (auto) 1.5 10 ^3/uL (0-1.3); Monocytes % (auto) 13.4 % (0.0-12.0); Neutrophils # (auto) 7.7 10 ^3/uL (1.6-8.6); Neutrophils % (auto) 69.5 % (37.0-80.0); Platelet Count (auto) 184 10^3/uL (140-450); Red Blood Cells 5.01 10^6/uL (4.5-5.90); Red Cell Distribution Width 15.1 % (11.8-14.3); White Blood Cell 11.1 10^3/uL (4.4-10.8)
[2019-12-16] MEDS: METOCLOPRAMIDE HCL 5MG/ml INJ 2ml VIAL IV SCH ×3 (06:25→22:28)
[2019-12-16] MEDS: ACCU-CHEK COMFORT CURVE STRIP VI SCH ×3 (06:25→18:30)
[2019-12-16] MEDS: LACTULOSE 20Gm/30ML SOLN PO SCH ×3 (06:25→22:28)
[2019-12-16 06:36] LABS: BUN/Creatinine Ratio 37.9; Calcium 9.7 mg/dL (8.5-10.1); Potassium 3.1 mmol/L (3.5-5.1)
[2019-12-16] MEDS: fentaNYL Drip 2500mCg/250mlNS 250 ML IV SCH ×2 (08:00→18:50)
[2019-12-16] MEDS: cefTRIAXone 1GM/50ML D5W 50 ML IV SCH (09:02)
[2019-12-16] MEDS: POTASSIUM CHL 20MEQ/100ML 100 ML IV PRN ×2 (09:48→10:55)
[2019-12-16] MEDS ORDERED: CARVEDILOL 12.5 MG TAB PO ONE (10:15)
[2019-12-16] MEDS: PANTOPRAZOLE 40 MG/10 ML VIAL INJ IV SCH (10:19)
[2019-12-16] MEDS: SACUBITRIL-VALSARTAN 24mg/26mg TAB PO SCH ×2 (10:21→22:29)
[2019-12-16] MEDS: CLOPIDOGREL BISULFATE 75 MG TAB PO SCH (10:21)
[2019-12-16] MEDS: AZITHROMYCIN 500MG/ 250ML 250 ML IV SCH (10:24)
[2019-12-16] MEDS: FUROSEMIDE 40 MG/4 ML VIAL IV SCH (10:29)
[2019-12-16] MEDS: DOCUSATE ORAL LIQUID 100 MG/10 ML UD GT SCH ×2 (10:42→22:00)
[2019-12-16] MEDS: ASPirin 81 mg TAB PO SCH (10:43)
[2019-12-16] MEDS: FUROSEMIDE INJECTION 100 MG in D5W 5% 100 ML IV SCH (17:02)
[2019-12-16] MEDS: ATORVASTATIN 20 MG TAB PO SCH (22:27)
[2019-12-16] MEDS: CARVEDILOL 12.5 MG TAB PO SCH (22:28)
[2019-12-17] VITALS (103 sets, daily range): BP systolic 11–136; BP diastolic 37–82
[2019-12-17] MEDS: PROPOFOL 100 ML IV SCH ×13 (00:15→22:59)
[2019-12-17] MEDS: MIDAZOLAM DRIP 50 mg/50mL 50 ML IV SCH ×4 (00:17→21:39)
[2019-12-17] MEDS: DexMEDEtomidine 400 MCG in D5W 5% 96 ML IV SCH ×2 (01:27→12:47)
[2019-12-17] MEDS: ACCU-CHEK COMFORT CURVE STRIP VI SCH ×5 (02:56→23:20)
[2019-12-17 05:08] LABS: Calcium 9.5 mg/dL (8.5-10.1); Magnesium 1.8 mg/dL (1.6-2.6); Potassium 3.3 mmol/L (3.5-5.1)
[2019-12-17 05:13] LABS: BUN/Creatinine Ratio 20.8
[2019-12-17] MEDS: InsuLIN REG 1unit/0.01ml Soln (100units/ml) SC SCH ×5 (06:00→23:20)
[2019-12-17] MEDS: LACTULOSE 20Gm/30ML SOLN PO SCH ×3 (06:00→21:33)
[2019-12-17] MEDS: METOCLOPRAMIDE HCL 5MG/ml INJ 2ml VIAL IV SCH ×3 (06:17→22:13)
[2019-12-17] MEDS: fentaNYL Drip 2500mCg/250mlNS 250 ML IV SCH ×2 (06:21→19:11)
[2019-12-17] MEDS ORDERED: POTASSIUM CHL 20MEQ/100ML 100 ML IV ONE (06:50)
[2019-12-17] MEDS: POTASSIUM CHL 20MEQ/100ML 100 ML IV SCH ×5 (07:15→23:42)
[2019-12-17] MEDS: cefTRIAXone 1GM/50ML D5W 50 ML IV SCH (09:09)
[2019-12-17] MEDS: AZITHROMYCIN 500MG/ 250ML 250 ML IV SCH (09:23)
[2019-12-17] MEDS: DOCUSATE ORAL LIQUID 100 MG/10 ML UD GT SCH ×2 (09:23→21:33)
[2019-12-17] MEDS: PANTOPRAZOLE 40 MG/10 ML VIAL INJ IV SCH (09:23)
[2019-12-17] MEDS: CLOPIDOGREL BISULFATE 75 MG TAB PO SCH (09:24)
[2019-12-17] MEDS: CARVEDILOL 12.5 MG TAB PO SCH ×2 (10:00→22:00)
[2019-12-17] MEDS: SACUBITRIL-VALSARTAN 24mg/26mg TAB PO SCH ×2 (10:00→22:00)
[2019-12-17] MEDS: ASPirin 81 mg TAB PO SCH (10:00)
[2019-12-17] MEDS: FUROSEMIDE INJECTION 100 MG in D5W 5% 100 ML IV SCH (10:15)
[2019-12-17] MEDS: MAGNESIUM SULFATE 1GM/100ML 100 ML IV SCH ×2 (14:02→15:11)
[2019-12-17] MEDS: ATORVASTATIN 20 MG TAB PO SCH (18:28)
[2019-12-18] VITALS (102 sets, daily range): BP systolic 85–152; BP diastolic 41–90
[2019-12-18] MEDS: DexMEDEtomidine 400 MCG in D5W 5% 96 ML IV SCH ×3 (00:07→22:47)
[2019-12-18] MEDS: PROPOFOL 100 ML IV SCH ×7 (01:05→18:05)
[2019-12-18] MEDS: POTASSIUM CHL 20MEQ/100ML 100 ML IV SCH (01:06)
[2019-12-18] MEDS: MIDAZOLAM DRIP 50 mg/50mL 50 ML IV SCH ×3 (04:00→14:19)
[2019-12-18 04:09] LABS: Basophils # (auto) 0.1 10 ^3/uL (0-0.2); Eosinophils # (auto) 0.5 10 ^3/uL (0-0.8); Eosinophils % (auto) 4.8 % (0.0-7.0); Hematocrit 42.1 % (41.0-53.0); Hemoglobin 13.6 g/dL (13.5-17.5); Lymphocytes # (auto) 1.5 10 ^3/uL (0.4-5.4); Lymphocytes % (auto) 13.8 % (10.0-50.0); Mean Corpuscular Hemoglobin 29.6 pg (28.0-32.0); Mean Corpuscular Hgb Conc. 32.3 g/dL (32.0-36.0); Mean Corpuscular Volume 91.7 fL (80.0-100.0); Monocytes # (auto) 1.2 10 ^3/uL (0-1.3); Monocytes % (auto) 10.9 % (0.0-12.0); Neutrophils # (auto) 7.7 10 ^3/uL (1.6-8.6); Neutrophils % (auto) 69.5 % (37.0-80.0); Nucleated Red Blood Cells % 0.3 %; Platelet Count (auto) 170 10^3/uL (140-450); Red Blood Cells 4.59 10^6/uL (4.5-5.90); Red Cell Distribution Width 14.6 % (11.8-14.3)
[2019-12-18 04:26] LABS: BUN/Creatinine Ratio 31.9; Calcium 9.3 mg/dL (8.5-10.1); Magnesium 2.1 mg/dL (1.6-2.6); Potassium 3.7 mmol/L (3.5-5.1)
[2019-12-18] MEDS: InsuLIN REG 1unit/0.01ml Soln (100units/ml) SC SCH ×2 (06:00→12:00)
[2019-12-18] MEDS: LACTULOSE 20Gm/30ML SOLN PO SCH ×3 (06:00→22:15)
[2019-12-18] MEDS: METOCLOPRAMIDE HCL 5MG/ml INJ 2ml VIAL IV SCH ×3 (06:22→22:15)
[2019-12-18] MEDS: ACCU-CHEK COMFORT CURVE STRIP VI SCH ×2 (06:24→11:20)
[2019-12-18] MEDS: FUROSEMIDE 40 MG/4 ML VIAL IV SCH ×2 (06:24→18:03)
[2019-12-18] MEDS: fentaNYL Drip 2500mCg/250mlNS 250 ML IV SCH ×2 (07:49→23:01)
[2019-12-18] MEDS: cefTRIAXone 1GM/50ML D5W 50 ML IV SCH (08:02)
[2019-12-18] MEDS: DOCUSATE ORAL LIQUID 100 MG/10 ML UD GT SCH ×2 (09:14→22:14)
[2019-12-18] MEDS: PANTOPRAZOLE 40 MG/10 ML VIAL INJ IV SCH (09:26)
[2019-12-18] MEDS: ASPirin 81 mg TAB PO SCH (09:27)
[2019-12-18] MEDS: AZITHROMYCIN 500MG/ 250ML 250 ML IV SCH (09:27)
[2019-12-18] MEDS: CLOPIDOGREL BISULFATE 75 MG TAB PO SCH (09:27)
[2019-12-18] MEDS: SACUBITRIL-VALSARTAN 24mg/26mg TAB PO SCH ×2 (09:27→22:16)
[2019-12-18] MEDS: ENOXAPARIN SOD 40 MG/0.4 ML SYRINGE SC SCH (09:28)
[2019-12-18] MEDS: CARVEDILOL 12.5 MG TAB PO SCH ×2 (09:39→22:16)
[2019-12-18] MEDS ORDERED: levoFLOXacin 750MG 150 ML IV ONE (16:15)
[2019-12-18] MEDS: ATORVASTATIN 20 MG TAB PO SCH (18:03)
[2019-12-18] MEDS: POTASSIUM EFFERVESENT TAB 25 MEQ GT SCH (22:14)
[2019-12-19] VITALS (92 sets, daily range): BP systolic 97–156; BP diastolic 42–96
[2019-12-19 04:02] LABS: BUN/Creatinine Ratio 39.6; Calcium 9.6 mg/dL (8.5-10.1); Potassium 3.5 mmol/L (3.5-5.1)
[2019-12-19] MEDS: LACTULOSE 20Gm/30ML SOLN PO SCH ×3 (05:57→21:56)
[2019-12-19] MEDS: PROPOFOL 100 ML IV SCH ×7 (05:57→21:57)
[2019-12-19] MEDS: METOCLOPRAMIDE HCL 5MG/ml INJ 2ml VIAL IV SCH ×3 (05:57→21:54)
[2019-12-19] MEDS: FUROSEMIDE 40 MG/4 ML VIAL IV SCH ×2 (05:57→18:26)
[2019-12-19] MEDS: MIDAZOLAM DRIP 50 mg/50mL 50 ML IV SCH ×3 (05:58→16:52)
[2019-12-19] MEDS: ALBUTEROL SULF 2.5 MG/0.5ML(0.5%) NEB SOLN NEB PRN (06:35)
[2019-12-19] MEDS: IPRATROPIUM BROM 0.5 MG/2.5ML INH SOL NEB PRN (06:35)
[2019-12-19] MEDS: PANTOPRAZOLE 40 MG/10 ML VIAL INJ IV SCH (10:14)
[2019-12-19] MEDS: levoFLOXacin 750MG 150 ML IV SCH (10:14)
[2019-12-19] MEDS: ENOXAPARIN SOD 40 MG/0.4 ML SYRINGE SC SCH (10:15)
[2019-12-19] MEDS: SACUBITRIL-VALSARTAN 24mg/26mg TAB PO SCH ×2 (10:15→21:56)
[2019-12-19] MEDS: ASPirin 81 mg TAB PO SCH (10:15)
[2019-12-19] MEDS: DOCUSATE ORAL LIQUID 100 MG/10 ML UD GT SCH ×2 (10:15→21:54)
[2019-12-19] MEDS: CLOPIDOGREL BISULFATE 75 MG TAB PO SCH (10:15)
[2019-12-19] MEDS: POTASSIUM EFFERVESENT TAB 25 MEQ GT SCH ×2 (10:16→21:54)
[2019-12-19] MEDS: CARVEDILOL 12.5 MG TAB PO SCH ×2 (10:16→21:56)
[2019-12-19] MEDS: fentaNYL Drip 2500mCg/250mlNS 250 ML IV SCH (13:41)
[2019-12-19] MEDS: ATORVASTATIN 20 MG TAB PO SCH (18:26)
[2019-12-20] VITALS (99 sets, daily range): BP systolic 88–157; BP diastolic 35–106
[2019-12-20] MEDS: MIDAZOLAM DRIP 50 mg/50mL 50 ML IV SCH ×5 (00:14→23:13)
[2019-12-20] MEDS: PROPOFOL 100 ML IV SCH ×4 (00:14→09:39)
[2019-12-20] MEDS: fentaNYL Drip 2500mCg/250mlNS 250 ML IV SCH ×2 (03:51→18:27)
[2019-12-20] MEDS: FUROSEMIDE 40 MG/4 ML VIAL IV SCH ×2 (05:28→18:04)
[2019-12-20] MEDS: LACTULOSE 20Gm/30ML SOLN PO SCH ×3 (05:29→23:44)
[2019-12-20] MEDS: METOCLOPRAMIDE HCL 5MG/ml INJ 2ml VIAL IV SCH ×3 (05:29→23:43)
[2019-12-20] MEDS: DexMEDEtomidine 400 MCG in D5W 5% 96 ML IV SCH ×3 (06:45→13:24)
[2019-12-20 08:45] LABS: Basophils # (auto) 0.1 10 ^3/uL (0-0.2); Basophils % (auto) 0.9 % (0.0-2.0); Eosinophils # (auto) 0.3 10 ^3/uL (0-0.8); Eosinophils % (auto) 3.5 % (0.0-7.0); Hematocrit 43.5 % (41.0-53.0); Lymphocytes # (auto) 1.4 10 ^3/uL (0.4-5.4); Lymphocytes % (auto) 14.5 % (10.0-50.0); Mean Corpuscular Hemoglobin 29.4 pg (28.0-32.0); Mean Corpuscular Hgb Conc. 32.2 g/dL (32.0-36.0); Mean Corpuscular Volume 91.3 fL (80.0-100.0); Monocytes # (auto) 1.1 10 ^3/uL (0-1.3); Monocytes % (auto) 11.3 % (0.0-12.0); Neutrophils # (auto) 6.5 10 ^3/uL (1.6-8.6); Neutrophils % (auto) 69.8 % (37.0-80.0); Platelet Count (auto) 184 10^3/uL (140-450); Red Blood Cells 4.76 10^6/uL (4.5-5.90); Red Cell Distribution Width 14.4 % (11.8-14.3); White Blood Cell 9.4 10^3/uL (4.4-10.8)
[2019-12-20 09:00] LABS: Albumin 2.3 g/dL (3.4-5.0); Calcium 9.7 mg/dL (8.5-10.1); Potassium 3.2 mmol/L (3.5-5.1)
[2019-12-20 09:04] LABS: BUN/Creatinine Ratio 37.2; Bilirubin, Total 0.7 mg/dL (0.2-1.0); Total Protein 6.7 g/dL (6.4-8.2)
[2019-12-20] MEDS: CLOPIDOGREL BISULFATE 75 MG TAB PO SCH (10:42)
[2019-12-20] MEDS: POTASSIUM EFFERVESENT TAB 25 MEQ GT SCH ×2 (10:42→23:43)
[2019-12-20] MEDS: ENOXAPARIN SOD 40 MG/0.4 ML SYRINGE SC SCH (10:42)
[2019-12-20] MEDS: levoFLOXacin 750MG 150 ML IV SCH (10:42)
[2019-12-20] MEDS: DOCUSATE ORAL LIQUID 100 MG/10 ML UD GT SCH ×2 (10:42→23:43)
[2019-12-20] MEDS: PANTOPRAZOLE 40 MG/10 ML VIAL INJ IV SCH (10:42)
[2019-12-20] MEDS: ASPirin 81 mg TAB PO SCH (10:43)
[2019-12-20] MEDS: SACUBITRIL-VALSARTAN 24mg/26mg TAB PO SCH ×2 (10:53→23:45)
[2019-12-20] MEDS: CARVEDILOL 12.5 MG TAB PO SCH ×2 (10:53→23:44)
[2019-12-20] MEDS: ACETAMINOPHEN 325 MG TAB PO PRN (15:15)
[2019-12-20] MEDS: ATORVASTATIN 20 MG TAB PO SCH (18:04)
[2019-12-20] MEDS: ACETAMINOPHEN 650 MG RECT SUPP PR PRN (18:05)
[2019-12-20] MEDS: POTASSIUM CHL 20MEQ/100ML 100 ML IV SCH ×2 (18:05→20:22)
[2019-12-21] VITALS (97 sets, daily range): BP systolic 91–168; BP diastolic 40–105
[2019-12-21] MEDS: PROPOFOL 100 ML IV SCH ×10 (00:30→23:37)
[2019-12-21 03:35] LABS: Basophils # (auto) 0.1 10 ^3/uL (0-0.2); Eosinophils # (auto) 0.3 10 ^3/uL (0-0.8); Hematocrit 42.2 % (41.0-53.0); Hemoglobin 13.6 g/dL (13.5-17.5); Lymphocytes # (auto) 1.6 10 ^3/uL (0.4-5.4); Lymphocytes % (auto) 17.2 % (10.0-50.0); Mean Corpuscular Hemoglobin 29.5 pg (28.0-32.0); Mean Corpuscular Hgb Conc. 32.3 g/dL (32.0-36.0); Mean Corpuscular Volume 91.1 fL (80.0-100.0); Monocytes # (auto) 1.2 10 ^3/uL (0-1.3); Monocytes % (auto) 12.8 % (0.0-12.0); Neutrophils # (auto) 6.1 10 ^3/uL (1.6-8.6); Nucleated Red Blood Cells % 0.1 %; Platelet Count (auto) 206 10^3/uL (140-450); Red Blood Cells 4.63 10^6/uL (4.5-5.90); Red Cell Distribution Width 14.3 % (11.8-14.3); White Blood Cell 9.2 10^3/uL (4.4-10.8)
[2019-12-21 03:52] LABS: INR 1.12 (0.9-1.15); Partial Thromboplastin Time 25.8 sec (23.0-31.2)
[2019-12-21 03:55] LABS: Calcium 9.8 mg/dL (8.5-10.1); Potassium 3.4 mmol/L (3.5-5.1)
[2019-12-21 03:59] LABS: BUN/Creatinine Ratio 33.3; Magnesium 1.8 mg/dL (1.6-2.6)
[2019-12-21] MEDS: MIDAZOLAM DRIP 50 mg/50mL 50 ML IV SCH ×7 (04:03→23:00)
[2019-12-21] MEDS: METOCLOPRAMIDE HCL 5MG/ml INJ 2ml VIAL IV SCH ×3 (06:50→23:35)
[2019-12-21] MEDS: FUROSEMIDE 40 MG/4 ML VIAL IV SCH ×2 (06:50→17:56)
[2019-12-21] MEDS: LACTULOSE 20Gm/30ML SOLN PO SCH ×3 (06:51→21:48)
[2019-12-21] MEDS: DexMEDEtomidine 400 MCG in D5W 5% 96 ML IV SCH ×2 (07:27→18:47)
[2019-12-21] MEDS: fentaNYL Drip 2500mCg/250mlNS 250 ML IV SCH ×3 (08:21→21:37)
[2019-12-21] MEDS: POTASSIUM CHL 20MEQ/100ML 100 ML IV SCH ×2 (08:38→10:31)
[2019-12-21] MEDS: DOCUSATE ORAL LIQUID 100 MG/10 ML UD GT SCH ×2 (09:20→21:47)
[2019-12-21] MEDS: levoFLOXacin 750MG 150 ML IV SCH (09:20)
[2019-12-21] MEDS: SACUBITRIL-VALSARTAN 24mg/26mg TAB PO SCH ×2 (09:20→21:48)
[2019-12-21] MEDS: POTASSIUM EFFERVESENT TAB 25 MEQ GT SCH ×2 (09:20→21:48)
[2019-12-21] MEDS: PANTOPRAZOLE 40 MG/10 ML VIAL INJ IV SCH (09:20)
[2019-12-21] MEDS: ASPirin 81 mg TAB PO SCH (09:20)
[2019-12-21] MEDS: ENOXAPARIN SOD 40 MG/0.4 ML SYRINGE SC SCH (09:20)
[2019-12-21] MEDS: CARVEDILOL 12.5 MG TAB PO SCH ×2 (09:21→21:50)
[2019-12-21] MEDS: CLOPIDOGREL BISULFATE 75 MG TAB PO SCH (09:21)
[2019-12-21] MEDS ORDERED: DOBUTamine 1000MCG/ML 250 ML IV SCH (13:15)
[2019-12-21] MEDS: DOBUTamine 1000MCG/ML 250 ML IV SCH ×3 (14:13→23:36)
[2019-12-21] MEDS: ACETAMINOPHEN 650 MG RECT SUPP PR PRN ×2 (16:31→22:15)
[2019-12-21] MEDS: ATORVASTATIN 20 MG TAB PO SCH (17:56)
[2019-12-22] VITALS (96 sets, daily range): BP systolic 90–163; BP diastolic 46–98
[2019-12-22] MEDS: PROPOFOL 100 ML IV SCH ×10 (02:02→21:51)
[2019-12-22] MEDS: FUROSEMIDE 40 MG/4 ML VIAL IV SCH ×2 (03:10→17:44)
[2019-12-22] MEDS: MIDAZOLAM DRIP 50 mg/50mL 50 ML IV SCH ×5 (03:11→21:36)
[2019-12-22] MEDS: fentaNYL Drip 2500mCg/250mlNS 250 ML IV SCH ×3 (04:42→21:38)
[2019-12-22] MEDS: METOCLOPRAMIDE HCL 5MG/ml INJ 2ml VIAL IV SCH ×3 (05:39→21:31)
[2019-12-22] MEDS: LACTULOSE 20Gm/30ML SOLN PO SCH ×3 (05:39→22:00)
[2019-12-22] MEDS: IPRATROPIUM BROM 0.5 MG/2.5ML INH SOL NEB PRN (05:41)
[2019-12-22] MEDS: ALBUTEROL SULF 2.5 MG/0.5ML(0.5%) NEB SOLN NEB PRN (05:41)
[2019-12-22] MEDS: DexMEDEtomidine 400 MCG in D5W 5% 96 ML IV SCH ×2 (06:07→19:44)
[2019-12-22] MEDS: DOCUSATE ORAL LIQUID 100 MG/10 ML UD GT SCH ×2 (08:44→21:31)
[2019-12-22] MEDS: ENOXAPARIN SOD 40 MG/0.4 ML SYRINGE SC SCH (09:31)
[2019-12-22] MEDS: POTASSIUM EFFERVESENT TAB 25 MEQ GT SCH ×2 (09:31→21:31)
[2019-12-22] MEDS: levoFLOXacin 750MG 150 ML IV SCH (09:31)
[2019-12-22] MEDS: PANTOPRAZOLE 40 MG/10 ML VIAL INJ IV SCH (09:31)
[2019-12-22] MEDS: CARVEDILOL 12.5 MG TAB PO SCH ×2 (09:32→21:33)
[2019-12-22] MEDS: ASPirin 81 mg TAB PO SCH (09:32)
[2019-12-22] MEDS: SACUBITRIL-VALSARTAN 24mg/26mg TAB PO SCH ×2 (09:32→21:34)
[2019-12-22] MEDS: CLOPIDOGREL BISULFATE 75 MG TAB PO SCH (09:32)
[2019-12-22] MEDS: DOBUTamine 1000MCG/ML 250 ML IV SCH ×4 (11:15→22:30)
[2019-12-22] MEDS ORDERED: POTASSIUM CHL 20MEQ/100ML 100 ML IV ONE (17:41)
[2019-12-22] MEDS: ATORVASTATIN 20 MG TAB PO SCH (17:44)
[2019-12-22] MEDS: POTASSIUM CHL 20MEQ/100ML 100 ML IV SCH ×2 (17:44→20:13)
[2019-12-23] VITALS (107 sets, daily range): BP systolic 105–157; BP diastolic 47–100
[2019-12-23] MEDS: DOBUTamine 1000MCG/ML 250 ML IV SCH ×6 (00:46→23:51)
[2019-12-23] MEDS: PROPOFOL 100 ML IV SCH ×10 (01:34→23:52)
[2019-12-23] MEDS: MIDAZOLAM DRIP 50 mg/50mL 50 ML IV SCH ×6 (01:34→23:52)
[2019-12-23 04:17] LABS: Basophils # (auto) 0.1 10 ^3/uL (0-0.2); Basophils % (auto) 0.6 % (0.0-2.0); Eosinophils # (auto) 0.8 10 ^3/uL (0-0.8); Eosinophils % (auto) 5.4 % (0.0-7.0); Hematocrit 43.3 % (41.0-53.0); Hemoglobin 14.3 g/dL (13.5-17.5); Lymphocytes # (auto) 1.7 10 ^3/uL (0.4-5.4); Lymphocytes % (auto) 11.6 % (10.0-50.0); Mean Corpuscular Hemoglobin 29.9 pg (28.0-32.0); Mean Corpuscular Hgb Conc. 33.1 g/dL (32.0-36.0); Mean Corpuscular Volume 90.2 fL (80.0-100.0); Monocytes # (auto) 1.7 10 ^3/uL (0-1.3); Monocytes % (auto) 11.6 % (0.0-12.0); Neutrophils # (auto) 10.2 10 ^3/uL (1.6-8.6); Neutrophils % (auto) 70.8 % (37.0-80.0); Platelet Count (auto) 164 10^3/uL (140-450); Red Cell Distribution Width 14.5 % (11.8-14.3); White Blood Cell 14.5 10^3/uL (4.4-10.8)
[2019-12-23] MEDS: fentaNYL Drip 2500mCg/250mlNS 250 ML IV SCH ×3 (04:28→20:16)
[2019-12-23 04:34] LABS: BUN/Creatinine Ratio 19.8; Calcium 9.1 mg/dL (8.5-10.1); Potassium 3.4 mmol/L (3.5-5.1)
[2019-12-23] MEDS: METOCLOPRAMIDE HCL 5MG/ml INJ 2ml VIAL IV SCH ×3 (06:36→22:56)
[2019-12-23] MEDS: FUROSEMIDE 40 MG/4 ML VIAL IV SCH ×2 (06:36→18:00)
[2019-12-23] MEDS: LACTULOSE 20Gm/30ML SOLN PO SCH ×3 (06:36→23:05)
[2019-12-23] MEDS: POTASSIUM EFFERVESENT TAB 25 MEQ GT SCH ×2 (10:00→23:04)
[2019-12-23] MEDS: PANTOPRAZOLE 40 MG/10 ML VIAL INJ IV SCH (10:00)
[2019-12-23] MEDS: CLOPIDOGREL BISULFATE 75 MG TAB PO SCH (10:00)
[2019-12-23] MEDS: ASPirin 81 mg TAB PO SCH (10:00)
[2019-12-23] MEDS: levoFLOXacin 750MG 150 ML IV SCH (10:00)
[2019-12-23] MEDS: ENOXAPARIN SOD 40 MG/0.4 ML SYRINGE SC SCH (10:00)
[2019-12-23] MEDS: DOCUSATE ORAL LIQUID 100 MG/10 ML UD GT SCH ×2 (10:00→22:56)
[2019-12-23] MEDS: SACUBITRIL-VALSARTAN 24mg/26mg TAB PO SCH ×2 (10:00→23:04)
[2019-12-23] MEDS: CARVEDILOL 12.5 MG TAB PO SCH ×2 (10:00→23:05)
[2019-12-23] MEDS: DexMEDEtomidine 400 MCG in D5W 5% 96 ML IV SCH (14:24)
[2019-12-23] MEDS: ATORVASTATIN 20 MG TAB PO SCH (18:00)
[2019-12-23] MEDS ORDERED: POTASSIUM CHL 20MEQ/100ML 100 ML IV ONE (18:45)
[2019-12-23] MEDS: ALBUTEROL SULF 2.5 MG/0.5ML(0.5%) NEB SOLN NEB PRN (18:57)
[2019-12-23] MEDS: IPRATROPIUM BROM 0.5 MG/2.5ML INH SOL NEB PRN (18:57)
[2019-12-24] VITALS (88 sets, daily range): BP systolic 92–133; BP diastolic 39–77
[2019-12-24] MEDS: PROPOFOL 100 ML IV SCH ×14 (01:00→23:55)
[2019-12-24] MEDS: DexMEDEtomidine 400 MCG in D5W 5% 96 ML IV SCH ×2 (03:27→14:47)
[2019-12-24 03:37] LABS: Basophils # (auto) 0.1 10 ^3/uL (0-0.2); Basophils % (auto) 1.1 % (0.0-2.0); Eosinophils # (auto) 0.7 10 ^3/uL (0-0.8); Eosinophils % (auto) 5.7 % (0.0-7.0); Hematocrit 42.5 % (41.0-53.0); Hemoglobin 13.8 g/dL (13.5-17.5); Lymphocytes # (auto) 1.7 10 ^3/uL (0.4-5.4); Lymphocytes % (auto) 12.8 % (10.0-50.0); Mean Corpuscular Hgb Conc. 32.4 g/dL (32.0-36.0); Mean Corpuscular Volume 89.5 fL (80.0-100.0); Monocytes # (auto) 1.5 10 ^3/uL (0-1.3); Monocytes % (auto) 11.4 % (0.0-12.0); Neutrophils # (auto) 8.9 10 ^3/uL (1.6-8.6); Nucleated Red Blood Cells % 0.1 %; Platelet Count (auto) 176 10^3/uL (140-450); Red Blood Cells 4.76 10^6/uL (4.5-5.90); Red Cell Distribution Width 14.5 % (11.8-14.3); White Blood Cell 12.9 10^3/uL (4.4-10.8)
[2019-12-24 03:59] LABS: Magnesium 1.5 mg/dL (1.6-2.6); Potassium 3.1 mmol/L (3.5-5.1)
[2019-12-24 04:01] LABS: BUN/Creatinine Ratio 19.8
[2019-12-24] MEDS: MIDAZOLAM DRIP 50 mg/50mL 50 ML IV SCH ×6 (04:21→23:17)
[2019-12-24] MEDS: fentaNYL Drip 2500mCg/250mlNS 250 ML IV SCH ×3 (04:21→19:50)
[2019-12-24] MEDS: DOBUTamine 1000MCG/ML 250 ML IV SCH ×4 (05:03→21:34)
[2019-12-24] MEDS: METOCLOPRAMIDE HCL 5MG/ml INJ 2ml VIAL IV SCH ×3 (06:36→21:28)
[2019-12-24] MEDS: MAGNESIUM SULFATE 1GM/100ML 100 ML IV SCH ×4 (06:37→12:47)
[2019-12-24] MEDS: LACTULOSE 20Gm/30ML SOLN PO SCH ×3 (06:37→21:28)
[2019-12-24] MEDS: FUROSEMIDE 40 MG/4 ML VIAL IV SCH ×2 (06:37→18:15)
[2019-12-24] MEDS: DOCUSATE ORAL LIQUID 100 MG/10 ML UD GT SCH ×2 (10:36→21:28)
[2019-12-24] MEDS: SACUBITRIL-VALSARTAN 24mg/26mg TAB PO SCH ×2 (10:36→21:27)
[2019-12-24] MEDS: POTASSIUM EFFERVESENT TAB 25 MEQ GT SCH ×2 (10:36→21:28)
[2019-12-24] MEDS: ASPirin 81 mg TAB PO SCH (10:36)
[2019-12-24] MEDS: CLOPIDOGREL BISULFATE 75 MG TAB PO SCH (10:36)
[2019-12-24] MEDS: PANTOPRAZOLE 40 MG/10 ML VIAL INJ IV SCH (10:36)
[2019-12-24] MEDS: CARVEDILOL 12.5 MG TAB PO SCH ×2 (10:37→21:27)
[2019-12-24] MEDS: ENOXAPARIN SOD 40 MG/0.4 ML SYRINGE SC SCH (10:38)
[2019-12-24] MEDS: levoFLOXacin 750MG 150 ML IV SCH (10:40)
[2019-12-24] MEDS: ATORVASTATIN 20 MG TAB PO SCH (18:15)
[2019-12-25] VITALS (104 sets, daily range): BP systolic 89–128; BP diastolic 41–79
[2019-12-25] MEDS: PROPOFOL 100 ML IV SCH ×10 (01:54→22:14)
[2019-12-25] MEDS: DOBUTamine 1000MCG/ML 250 ML IV SCH ×5 (02:20→22:19)
[2019-12-25] MEDS: MIDAZOLAM DRIP 50 mg/50mL 50 ML IV SCH ×5 (02:21→20:24)
[2019-12-25] MEDS: fentaNYL Drip 2500mCg/250mlNS 250 ML IV SCH ×3 (03:45→20:10)
[2019-12-25 04:11] LABS: Basophils # (auto) 0.1 10 ^3/uL (0-0.2); Eosinophils # (auto) 0.7 10 ^3/uL (0-0.8); Eosinophils % (auto) 5.8 % (0.0-7.0); Hematocrit 42.4 % (41.0-53.0); Hemoglobin 14.2 g/dL (13.5-17.5); Lymphocytes # (auto) 1.8 10 ^3/uL (0.4-5.4); Lymphocytes % (auto) 14.2 % (10.0-50.0); Mean Corpuscular Hemoglobin 29.6 pg (28.0-32.0); Mean Corpuscular Hgb Conc. 33.4 g/dL (32.0-36.0); Mean Corpuscular Volume 88.6 fL (80.0-100.0); Monocytes # (auto) 1.5 10 ^3/uL (0-1.3); Monocytes % (auto) 12.2 % (0.0-12.0); Neutrophils # (auto) 8.3 10 ^3/uL (1.6-8.6); Neutrophils % (auto) 66.8 % (37.0-80.0); Platelet Count (auto) 182 10^3/uL (140-450); Red Blood Cells 4.79 10^6/uL (4.5-5.90); Red Cell Distribution Width 14.6 % (11.8-14.3); White Blood Cell 12.4 10^3/uL (4.4-10.8)
[2019-12-25 04:27] LABS: BUN/Creatinine Ratio 16.7
[2019-12-25] MEDS: LACTULOSE 20Gm/30ML SOLN PO SCH ×3 (06:11→21:41)
[2019-12-25] MEDS: METOCLOPRAMIDE HCL 5MG/ml INJ 2ml VIAL IV SCH ×3 (06:11→21:41)
[2019-12-25] MEDS: FUROSEMIDE 40 MG/4 ML VIAL IV SCH ×2 (06:11→18:00)
[2019-12-25] MEDS: POTASSIUM CHL 20MEQ/100ML 100 ML IV SCH ×2 (08:00→10:23)
[2019-12-25] MEDS: SACUBITRIL-VALSARTAN 24mg/26mg TAB PO SCH ×2 (10:00→21:41)
[2019-12-25] MEDS: CARVEDILOL 12.5 MG TAB PO SCH ×2 (10:00→21:41)
[2019-12-25] MEDS: DOCUSATE ORAL LIQUID 100 MG/10 ML UD GT SCH ×2 (10:23→21:40)
[2019-12-25] MEDS: POTASSIUM EFFERVESENT TAB 25 MEQ GT SCH ×2 (10:23→21:40)
[2019-12-25] MEDS: levoFLOXacin 750MG 150 ML IV SCH (10:23)
[2019-12-25] MEDS: ENOXAPARIN SOD 40 MG/0.4 ML SYRINGE SC SCH (10:24)
[2019-12-25] MEDS: CLOPIDOGREL BISULFATE 75 MG TAB PO SCH (10:24)
[2019-12-25] MEDS: PANTOPRAZOLE 40 MG/10 ML VIAL INJ IV SCH (10:24)
[2019-12-25] MEDS: ASPirin 81 mg TAB PO SCH (10:26)
[2019-12-25] MEDS: ATORVASTATIN 20 MG TAB PO SCH (18:00)
[2019-12-25] MEDS: IPRATROPIUM BROM 0.5 MG/2.5ML INH SOL NEB PRN (22:20)
[2019-12-25] MEDS: ALBUTEROL SULF 2.5 MG/0.5ML(0.5%) NEB SOLN NEB PRN (22:20)
[2019-12-26] VITALS: BP 127/83
[2019-12-26 00:15] VITALS: BP 125/71
[2019-12-26] MEDS: PROPOFOL 100 ML IV SCH (00:30)
[2019-12-26] MEDS: MIDAZOLAM DRIP 50 mg/50mL 50 ML IV SCH (00:31)
== END 2019-12-26 00:30 | DRG 720 ==
LOC: ER 19:12 → DOU IN ICU 19:13 → ICU WEST 12-22 23:29
PROVIDERS: ADMIT Hospitalist; ATTEND Internal Medicine
PROC: 5A09357 Assistance with Respiratory Ventilation, Less than 24 Consecutive Hours, Continuous Positive Airway Pressure (ICD-10-PCS; principal; 2019-12-03)
PROC: 02HV33Z Insertion of Infusion Device into Superior Vena Cava, Percutaneous Approach (ICD-10-PCS; 2019-12-03)
PROC: 5A1955Z Respiratory Ventilation, Greater than 96 Consecutive Hours (ICD-10-PCS; 2019-12-03)
PROC: 0BH17EZ Insertion of Endotracheal Airway into Trachea, Via Natural or Artificial Opening (ICD-10-PCS; 2019-12-03)
PROC: 5A09357 Assistance with Respiratory Ventilation, Less than 24 Consecutive Hours, Continuous Positive Airway Pressure (ICD-10-PCS; 2019-12-03)
PROC: 0BJ08ZZ Inspection of Tracheobronchial Tree, Via Natural or Artificial Opening Endoscopic (ICD-10-PCS; 2019-12-13)
DX: A41.9 Sepsis, unspecified organism (principal); J96.22 Acute and chronic respiratory failure with hypercapnia; J96.21 Acute and chronic respiratory failure with hypoxia; J18.9 Pneumonia, unspecified organism; I50.23 Acute on chronic systolic (congestive) heart failure; Z20.828 Contact with and (suspected) exposure to other viral communicable diseases; I21.A1 Myocardial infarction type 2; E66.2 Morbid (severe) obesity with alveolar hypoventilation; I26.99 Other pulmonary embolism without acute cor pulmonale; E87.2 Acidosis; E78.5 Hyperlipidemia, unspecified; K59.00 Constipation, unspecified; F41.9 Anxiety disorder, unspecified; I11.0 Hypertensive heart disease with heart failure; Z68.43 Body mass index [BMI] 50.0-59.9, adult; Z99.11 Dependence on respirator [ventilator] status
CPT/HCPCS: 36415; 36600; 71045; 74018; 80048; 80053; 80061; 80076; 82150; 82805; 82962; 83605; 83690; 83735; 83880; 84132; 84484; 85025; 85379; 85610; 85730; 87040; 87070; 87086; 87088; 87205; 93005; 93306; 93970; 94002; 94003; 94640; 94660; 96365; 96372; 96375; 99291; C9113; G0378; J0171; J0330; J0696; J1100; J1815; J1956; J2250; J2405; J2543; J2704; J3480; J7060